=== PATIENT | female | born 1965 | race Caucasian/White ===

== ENCOUNTER 2022-11-18 17:42 | Emergency (ER) | payer OTHER ==
[~2022-11-18] VITALS: Ht 160 cm; Wt 63.0 kg
[2022-11-18 18:37] LABS: BASOPHILS # (AUTO) 0.1 K/UL (0.0-0.2); BASOPHILS % (AUTO) 1.5 % (0.0-2.0); EOSINOPHILS # (AUTO) 0.1 K/uL (0.0-0.7); EOSINOPHILS % (AUTO) 0.7 % (0.0-7.0); HEMATOCRIT 42.6 % (31.2-41.9); HEMOGLOBIN 14.9 g/dL (10.9-14.3); LYMPHOCYTES # (AUTO) 2.5 K/uL (0.8-4.8); LYMPHOCYTES % (AUTO) 27.4 % (20.5-51.5); MEAN CORPUSCULAR HEMOGLOBIN 36.3 uug (24.7-32.8); MEAN CORPUSCULAR HGB CONC 35 g/dL (32.3-35.6); MEAN CORPUSCULAR VOLUME 103.7 fL (75.5-95.3); MONOCYTES # (AUTO) 1.3 K/uL (0.1-1.30); MONOCYTES % (AUTO) 13.9 % (0.0-11.0); NEUTROPHILS # (AUTO) 5.1 K/uL (1.8-8.9); NEUTROPHILS % (AUTO) 56.5 % (38.5-71.5); PLATELET COUNT (AUTO) 220 K/uL (179-408); RED BLOOD CELL COUNT(AUTO) 4.11 MIL/uL (3.63-4.92); RED CELL DISTRIBUTION WIDTH 15.2 % (12.3-17.7)
[2022-11-18 19:22] LABS: DIFFERENTIAL COMMENT 1
[2022-11-18 19:29] LABS: CALCIUM 9.7 mg/dL (8.5-10.1); POTASSIUM 3.9 mmol/L (3.5-5.1)
[2022-11-18 19:34] LABS: ALBUMIN 3.7 g/dL (3.4-5.0); BILIRUBIN,TOTAL 0.5 mg/dL (0.2-1.0); TOTAL PROTEIN, SERUM 7.7 g/dL (6.4-8.2)
[2022-11-18 19:36] LABS: MAGNESIUM 1.2 mg/dL (1.8-2.4)
[2022-11-18] MEDS ORDERED: MAGNESIUM SULFATE/D5W 200 ML ONE (19:58)
[2022-11-18] MEDS: MAGNESIUM SULFATE/D5W 100 ML IV SCH ×2 (20:05→20:38)
[2022-11-18] MEDS ORDERED: MAGNESIUM SULFATE/D5W 100 ML IV SCH (20:30)
[2022-11-18] MEDS ORDERED: IV NS 1000 ML 1,000 ML IV ONE (20:30)
[2022-11-18] MEDS ORDERED: MAGNESIUM SULFATE/D5W 100 ML ONE (20:31)
[2022-11-18 23:30] LABS: CALCIUM 8.8 mg/dL (8.5-10.1); CREATININE 0.6 mg/dL (0.6-1.3); POTASSIUM 4.9 mmol/L (3.5-5.1)
[2022-11-19 00:44] VITALS: BP 140/90; O2SAT 97
== END 2022-11-19 00:35 | disposition home or self-care (01) ==
LOC: ER 17:45
DX: E83.42 Hypomagnesemia (principal)
CPT/HCPCS: 36415; 83735; 85025; 93005; A4663; J3475; J7040